=== PATIENT | female | born 1965 | race Caucasian/White ===

== ENCOUNTER → 2019-12-01 11:43 | Outpatient (BNVA) | payer BC, SELFPAY | PROVIDERS: Visit Provider Nurse Practitioner Family | DX: M67.471 Ganglion, right ankle and foot (principal) | CPT/HCPCS: 73630 ==

== ENCOUNTER 2019-12-20 14:35 | Outpatient (CLI) | payer BC, SELFPAY ==
--- NOTE | 2019-12-20 14:40 | XRR_ITS ---
PROCEDURE INFORMATION: Exam: XR Right Ankle Exam date and time: 12/20/2019 2:55 PM Age: 54 years old Clinical indication: Pain; Ankle; Right TECHNIQUE: Imaging protocol: XR Right ankle. Views: 3 or more views. COMPARISON: CR XR foot RT min 3V* [id number] 12/01/2019 11:56 AM FINDINGS: Bones/joints: No fracture. Calcaneal spur. Soft tissues: Normal. XR/XR ankle RT min 3V* [id number] IMPRESSION: No acute findings.
== END 2019-12-20 14:36 | disposition home or self-care (01) ==
LOC: RAD 14:38
PROVIDERS: Visit Provider Podiatrist Foot & Ankle Surgery
DX: M25.571 Pain in right ankle and joints of right foot (principal)
CPT/HCPCS: 73610